=== PATIENT | female | born 1970 | race Two or more races ===

== ENCOUNTER 2022-04-05 18:42 | Emergency (ER) | payer OTHER ==
[~2022-04-05] VITALS: Ht 162.6 cm; Wt 46.7 kg
[2022-04-05] MEDS ORDERED: SIMVASTATIN5 MG (19:03)
== END 2022-04-05 20:28 | disposition home or self-care (01) ==
LOC: ER 18:42
DX: T14.8XXA Other injury of unspecified body region, initial encounter (principal); V13.4XXA Pedal cycle driver injured in collision with car, pick-up truck or van in traffic accident, initial encounter; Y93.89 Activity, other specified; Y92.89 Other specified places as the place of occurrence of the external cause; Y99.9 Unspecified external cause status